=== PATIENT | male | born 1995 | race Two or more races ===

== ENCOUNTER 2020-08-07 04:56 | Inpatient (IN) | payer SELFPAY ==
[~2020-08-07] VITALS: Ht 172.7 cm; Wt 91.7 kg
[2020-08-07] MEDS ORDERED: SODIUM CHLORIDE 0.9% 2,000 ML IV ONE (05:30)
[2020-08-07] MEDS ORDERED: THIAMINE INJ 100 MG in SODIUM CHLORIDE 0.9% 1,000 ML IV ONE (05:30)
[2020-08-07] MEDS ORDERED: diphenhdrAMINE HCL 50 MG/1 ML VL IM ONE (05:30)
[2020-08-07] MEDS ORDERED: LORazepam 2MG/ML-1ML VIAL IM ONE (05:30)
[2020-08-07] MEDS ORDERED: HALOPERIDOL LACTATE 5 MG/ML INJ VIAL IM ONE (05:30)
[2020-08-07] MEDS ORDERED: THIAMINE 100mg/ml INJ (200mg/2ml VIAL) ONE (06:20)
[2020-08-07 06:45] LABS: Hematocrit 50.8 % (41.0-53.0); Mean Corpuscular Volume 94.5 fL (80.0-100.0); Red Blood Cells 5.38 10^6/uL (4.5-5.90)
[2020-08-07 06:48] LABS: Hemoglobin 17.2 g/dL (13.5-17.5); Mean Corpuscular Hgb Conc. 33.9 g/dL (32.0-36.0); Platelet Count (auto) 321 10^3/uL (140-450); Red Cell Distribution Width 13.2 % (11.8-14.3); White Blood Cell 24.7 10^3/uL (4.4-10.8)
[2020-08-07 06:57] LABS: Band Neutrophils % (manual) 0; Basophils % (manual) 0 (0.0-2.0); Blast Cells 0; Eosinophils % (manual) 0 (0-7); Metamyelocytes % 0; Myelocytes % 0; Promyelocytes % 0; Reactive Lymphocytes 0
[2020-08-07 07:18] LABS: Calcium 9.3 mg/dL (8.5-10.1); Potassium 4.1 mmol/L (3.5-5.1)
[2020-08-07 07:22] LABS: BUN/Creatinine Ratio 7.9; Total Protein 9.1 g/dL (6.4-8.2)
[2020-08-07 07:30] LABS: Lymphocytes % (manual) 9 (10.0-50.0); Monocytes % (manual) 2 (0-12)
[2020-08-07 13:50] LABS: Urine Bacteria NONE SEEN /hpf (None Seen); Urine Blood 3+ /uL (Negative); Urine Mucus FEW (None Seen); Urine Specific Gravity 1.024 (1.001-1.035); Urine WBC 17 /hpf (0 - 3)
[2020-08-07 14:00] LABS: Amphetamine Screen, Urine POSITIVE (NEGATIVE); Barbiturate Scree,Urine NEGATIVE (NEGATIVE); Benzodiazephine Screen, Urine POSITIVE (NEGATIVE); Cocaine Screen, Urine NEGATIVE (NEGATIVE); Opiate Scree,Urine NEGATIVE (NEGATIVE); Phencyclidine Screen, Urine NEGATIVE (NEGATIVE)
[2020-08-07 14:08] LABS: Cannabinoid Screen, Urine POSITIVE (NEGATIVE)
[2020-08-07] MEDS ORDERED: SODIUM CHLORIDE 0.9% 1,000 ML IV ONE (14:30)
[2020-08-07] MEDS ORDERED: AMMONIA 0.33 ML INHALANT IN ONE (15:23)
[2020-08-07] MEDS ORDERED: NITROGLYCERIN 0.4 MG SL TAB SL PRN (16:00)
[2020-08-07] MEDS ORDERED: MORPHINE SULF INJ 2 MG/ML SYRINGE 1ML IV PRN ×3 (16:00→16:15)
[2020-08-07] MEDS ORDERED: PROMETHAZINE HCL 25 MG/ML 1ML IV PRN (16:15)
[2020-08-07] MEDS ORDERED: cefTRIAXone 1GM/50ML D5W 50 ML IV ONE (16:15)
[2020-08-07] MEDS: ENOXAPARIN SOD 40 MG/0.4 ML SYRINGE SC SCH (19:23)
[2020-08-07] MEDS: FAMOTIDINE (10MG/ML) 2ML VL IV SCH (19:24)
[2020-08-07] MEDS: SODIUM CHLORIDE 0.9% 1,000 ML IV SCH ×2 (19:24→23:02)
[2020-08-07 22:56] VITALS: BP 151/86
[2020-08-08 02:32] VITALS: BP 151/86
[2020-08-08 04:42] VITALS: BP 150/80
[2020-08-08] MEDS: FAMOTIDINE (10MG/ML) 2ML VL IV SCH ×2 (04:48→16:01)
[2020-08-08] MEDS: SODIUM CHLORIDE 0.9% 1,000 ML IV SCH ×3 (06:09→17:25)
[2020-08-08 07:58] LABS: Basophils # (auto) 0 10 ^3/uL (0-0.2); Basophils % (auto) 0.3 % (0.0-2.0); Eosinophils # (auto) 0.1 10 ^3/uL (0-0.8); Hematocrit 43.2 % (41.0-53.0); Hemoglobin 14.9 g/dL (13.5-17.5); Lymphocytes # (auto) 1.7 10 ^3/uL (0.4-5.4); Lymphocytes % (auto) 19.1 % (10.0-50.0); Mean Corpuscular Hemoglobin 32.8 pg (28.0-32.0); Mean Corpuscular Hgb Conc. 34.6 g/dL (32.0-36.0); Monocytes # (auto) 0.7 10 ^3/uL (0-1.3); Monocytes % (auto) 8.3 % (0.0-12.0); Neutrophils # (auto) 6.4 10 ^3/uL (1.6-8.6); Neutrophils % (auto) 71.3 % (37.0-80.0); Nucleated Red Blood Cells % 0.1 %; Platelet Count (auto) 203 10^3/uL (140-450); Red Blood Cells 4.55 10^6/uL (4.5-5.90); Red Cell Distribution Width 13.2 % (11.8-14.3)
[2020-08-08 08:19] LABS: Potassium 3.6 mmol/L (3.5-5.1)
[2020-08-08 08:59] LABS: Albumin 3.2 g/dL (3.4-5.0); BUN/Creatinine Ratio 15.1; Bilirubin, Total 1.3 mg/dL (0.2-1.0); Calcium 7.8 mg/dL (8.5-10.1); Total Protein 6.2 g/dL (6.4-8.2)
[2020-08-08] MEDS: cefTRIAXone 1GM/50ML D5W 50 ML IV SCH (09:15)
[2020-08-08] MEDS: ENOXAPARIN SOD 40 MG/0.4 ML SYRINGE SC SCH (09:15)
[2020-08-08 12:59] VITALS: BP 143/85
[2020-08-08 16:48] VITALS: BP 136/90
[2020-08-08 22:18] VITALS: BP 147/84
[2020-08-09] MEDS: SODIUM CHLORIDE 0.9% 1,000 ML IV SCH ×2 (01:45→09:28)
[2020-08-09] MEDS: ACETAMINOPHEN 325 MG TAB PO PRN ×2 (01:46→09:31)
[2020-08-09] MEDS: FAMOTIDINE (10MG/ML) 2ML VL IV SCH (04:24)
[2020-08-09 05:18] VITALS: BP 133/75
[2020-08-09 07:47] LABS: Basophils # (auto) 0 10 ^3/uL (0-0.2); Basophils % (auto) 0.5 % (0.0-2.0); Eosinophils # (auto) 0.1 10 ^3/uL (0-0.8); Eosinophils % (auto) 2.1 % (0.0-7.0); Hematocrit 40.8 % (41.0-53.0); Hemoglobin 13.8 g/dL (13.5-17.5); Lymphocytes # (auto) 1.8 10 ^3/uL (0.4-5.4); Lymphocytes % (auto) 27.1 % (10.0-50.0); Mean Corpuscular Hemoglobin 31.9 pg (28.0-32.0); Mean Corpuscular Hgb Conc. 33.9 g/dL (32.0-36.0); Mean Corpuscular Volume 94.1 fL (80.0-100.0); Monocytes # (auto) 0.6 10 ^3/uL (0-1.3); Monocytes % (auto) 8.4 % (0.0-12.0); Neutrophils % (auto) 61.9 % (37.0-80.0); Nucleated Red Blood Cells % 0.1 %; Platelet Count (auto) 196 10^3/uL (140-450); Red Blood Cells 4.33 10^6/uL (4.5-5.90); Red Cell Distribution Width 12.9 % (11.8-14.3); White Blood Cell 6.5 10^3/uL (4.4-10.8)
[2020-08-09 07:58] LABS: Potassium 3.6 mmol/L (3.5-5.1)
[2020-08-09 08:02] LABS: BUN/Creatinine Ratio 11.3
[2020-08-09 08:03] LABS: Albumin 3.1 g/dL (3.4-5.0); Bilirubin, Total 0.7 mg/dL (0.2-1.0); Magnesium 2.3 mg/dL (1.6-2.6); Phosphorus 2.7 mg/dL (2.5-4.90); Total Protein 6.1 g/dL (6.4-8.2)
[2020-08-09 08:57] VITALS: BP 155/80
[2020-08-09] MEDS: cefTRIAXone 1GM/50ML D5W 50 ML IV SCH (09:00)
[2020-08-09] MEDS: ENOXAPARIN SOD 40 MG/0.4 ML SYRINGE SC SCH (10:00)
[2020-08-09 11:55] VITALS: BP 138/76
[2020-08-09 14:02] VITALS: BP 133/80
[2020-08-11 13:12] LABS: Hepatitis B Surface Antibody Positive
[2020-08-11 13:14] LABS: Hepatitis B Surface Antigen Negative (Negative)
[2020-08-11 13:48] LABS: Hepatitis A Ab IgM Negative
[2020-08-11 13:52] LABS: Hepatitis B Core IgM Negative
[2020-08-11 13:55] LABS: Hepatitis A Total Antibody Positive
[2020-08-11 13:57] LABS: Hepatitis C Antibody Negative (Negative)
[2020-08-11 13:58] LABS: Hepatitis B Core Total AB Negative
== END 2020-08-09 14:44 | disposition left against medical advice (07) | DRG 92 ==
LOC: ER 04:56 → EDBD 04:56 → TELE 04:57 → TELE-WESTW 22:07
PROVIDERS: ADMIT Internal Medicine; ATTEND Internal Medicine
DX: G92 Toxic encephalopathy (principal); M62.82 Rhabdomyolysis; N17.9 Acute kidney failure, unspecified; N39.0 Urinary tract infection, site not specified; E66.9 Obesity, unspecified; Z83.3 Family history of diabetes mellitus; Z68.30 Body mass index [BMI] 30.0-30.9, adult; D72.829 Elevated white blood cell count, unspecified; F15.10 Other stimulant abuse, uncomplicated; F12.10 Cannabis abuse, uncomplicated; Y90.9 Presence of alcohol in blood, level not specified; F10.129 Alcohol abuse with intoxication, unspecified
CPT/HCPCS: 36415; 70450; 70486; 71045; 72125; 73030; 73130; 80053; 80074; 80307; 80320; 81001; 82140; 82550; 83735; 84100; 84550; 85007; 85025; 85027; 86704; 86706; 86708; 86803; 87040; 87086; 87340; 96365; 96366; 96372; 96375; 97163; G0378; J0696; J3490

== ENCOUNTER 2022-05-30 18:47 | Emergency (ER) | payer MEDICAID | END 2022-05-30 21:25 | disposition left against medical advice (07) | LOC: ER 18:47 | DX: T14.8XXA Other injury of unspecified body region, initial encounter (principal); Z53.21 Procedure and treatment not carried out due to patient leaving prior to being seen by health care provider; X58.XXXA Exposure to other specified factors, initial encounter; Y93.89 Activity, other specified; Y92.89 Other specified places as the place of occurrence of the external cause; Y99.8 Other external cause status ==